=== PATIENT | female | born 1990 | race Two or more races ===

== ENCOUNTER → 2020-09-21 | Emergency (ER) | payer OTHER ==
[~2020-09-21] VITALS: Ht 162.6 cm; Wt 51.7 kg
== END | disposition home or self-care (01) ==
LOC: ER 15:40
DX: T74.11XA Adult physical abuse, confirmed, initial encounter (principal); S00.03XA Contusion of scalp, initial encounter; S30.0XXA Contusion of lower back and pelvis, initial encounter; S70.12XA Contusion of left thigh, initial encounter; S20.224A Contusion of middle back wall of thorax, initial encounter; S50.11XA Contusion of right forearm, initial encounter; S80.12XA Contusion of left lower leg, initial encounter; S80.11XA Contusion of right lower leg, initial encounter; F41.1 Generalized anxiety disorder; Y04.2XXA Assault by strike against or bumped into by another person, initial encounter; Y07.01 Husband, perpetrator of maltreatment and neglect

== ENCOUNTER 2020-11-18 21:49 | Emergency (ER) | payer OTHER ==
[~2020-11-18] VITALS: Ht 162.6 cm; Wt 50.8 kg
[2020-11-19] MEDS ORDERED: KETO10TA2 PO (01:11)
== END 2020-11-19 01:32 | disposition home or self-care (01) ==
LOC: ER 21:49
DX: S50.12XA Contusion of left forearm, initial encounter (principal); S50.11XA Contusion of right forearm, initial encounter; S80.12XA Contusion of left lower leg, initial encounter; S80.11XA Contusion of right lower leg, initial encounter; S36.32XA Contusion of stomach, initial encounter; T74.11XA Adult physical abuse, confirmed, initial encounter; W50.0XXA Accidental hit or strike by another person, initial encounter; Y93.89 Activity, other specified; Y92.89 Other specified places as the place of occurrence of the external cause; Y99.8 Other external cause status